=== PATIENT | male | born 1990 | race Hispanic/Latino ===

== ENCOUNTER 2024-02-15 09:50 | Emergency (ER) | payer SELFPAY ==
[2024-02-15 09:52] VITALS: BP 138/89; PULSE 66; RESP 18; TEMP 37.2; O2SAT 100; BMI 25.7
--- NOTE | 2024-02-15 10:09 | EDS_ITS ---
HPI History of Present Illness Chief Complaint: Male Pain/Injury PFSH PFS Home Medications ?Medication ?Instructions ?Recorded ?Last Taken ?Type doxycycline hyclate 100 mg tablet 100 mg PO BID 7 days #14 tabs 02/15/24 Unknown Rx Allergy/AdvReac Type Severity Reaction Status Date / Time No Known Allergies Allergy Verified 02/15/24 09:52 EXAM Physical Exam Const Vital Signs: 02/15/24 09:52 Temperature 98.9 F Temperature Source Oral Pulse Rate 66 Respiratory Rate 18 Blood Pressure 138/89 H Blood Pressure Mean 105 Pulse Ox 100 Oxygen Delivery Method Room Air MDM MDM MDM Narrative Medical decision making narrative: HISTORY OF PRESENT ILLNESS: 33-year-old male Scottish-speaking primarily presents with concern for STD. States he had sex with a female for like needs to be tested. Notes he had unprotected sex with new partner. Notes this occurred a couple days ago. States since then he had burning with urination. No history of STDs. No a bdominal pain. No vomiting. REVIEW OF SYSTEMS: Pertinent positives: Painful urination Pertinent negatives: Abdominal pain, vomiting PHYSICAL EXAM: Nursing triage notes reviewed, Vital signs reviewed Constitutional: please see mdm Lungs: Clear to auscultation, No wheezing or rales. No increased work of breathing, no conversational dyspnea, no accessory muscle use, no nasal flaring. No respiratory distress noted Heart: Regular rate and rhythm, No murmurs, No rubs and No gallops, 2+ distal pulses (radial, femoral, posterior tibial) in all extremities Abdomen: Soft, there is no tenderness, rigidity, rebound or guarding, no obvious peritoneal signs, no palpable pulsatile abdominal masses, no auscultated abdominal bruit : No CVAT, performed associate professor physician in room showed normal-appearing testicles, normal-appearing genitalia, no chancre, no herpetic lesions, no testicular tenderness. Normal testicular lie. Extremities: No edema Skin: No rash or lesions noted MEDICAL DECISION MAKING: Chief Complaint: STD exposure External records reviewed: None Factors affecting care: none Social determinants of health: Scottish-speaking, cylinder tester used History obtained from others: none Consults: none [facility] Narrative: The patient was initially hemodynamically stable, afebrile, nontoxic-appearing. exam unremarkable. STD testing obtained. Empiric therapy given. I considered the following differential diagnosis: GC, chlamydia, HIV, syphilis I obtained urine GC chlamydia and serum syphilis and HIV testing. Give empiric therapy with ceftriaxone and doxycycline. Start the patient 1 week of doxycycline per CDC guidelines. Gave strict return precautions. Encouraged to avoid sexual contact until results of testing are known and antibiotics are completed. Encouraged safe sex practices including condom wearing. The patient and/or family, caregivers express understanding. The patient and/or family, caregivers agrees with the plan. Shared decision making: I will have a discussion with the patient and or visitors regarding risk/benefits of further testing or admission. They will be made aware of of the risk/benefits inherent in this decision they will be given the opportunity to voice understanding. Total critical care time today provided was at least 0 minutes. This excludes separately billable procedures. Critical care time (if documented) is secondary to the patient having high probability of clinically significant/life threatening deterioration in the patient's condition which required my urgent intervention. Impression: 1. Encounter for STD testing 2. Dysuria Dispo: Discharge home This note was generated with [employer] dictation software. It may contain incorrect words, spelling, and punctuation that were not noted in review of the chart prior to signing. Discharge Plan Triage Chief Complaint: Male Pain/Injury ED Provider: José Miguel Wagner Dx/Rx/DC Orders Instructions: STI Prescriptions: New doxycycline hyclate 100 mg tablet 100 mg PO BID 7 Days Qty: 14 0RF Primary Care Provider: Care Physician,No Primary Activity Restrictions/Additional Instructions: Thank you for trusting us with your care today! Please expect a call if your testing results positive. Please take Tylenol (2 pills, 650 mg), ibuprofen (2 pills, 400 mg) every 6 hours as needed for pain and fever control. Please take antibiotics as prescribed until course completed. Please refrain from activities until results of testing are known Please return to the emergency department if your symptoms change or worsen. Please follow with your primary care physician for further outpatient evaluation and management. Print Language: Scottish Disposition Disposition: Home, Self Care
[2024-02-15] MEDS: Doxycycline 100 MG CAPSULE PO (10:59)
[2024-02-15] MEDS: Ceftriaxone 500 MG Vial IM (10:59)
--- NOTE | 2024-02-15 12:38 | ED.RN ---
THIS RN CALLED PT AND SPOKE TO HIS FRIEND THAT TRANSLATES FOR HIM TO LET HIM KNOW THAT HIS CHLAMYDIA TEST CAME BACK POSITIVE BUT HE DID RECEIVE APPROPRIATE TREATMENT
[2024-02-15 13:24] LABS: HIV - WCH Non-Reactive (Nonreactive); Syphilis Antibodies Non-reactive
== END 2024-02-15 10:58 | disposition home or self-care (01) ==
PROVIDERS: Emergency Provider Emergency Medicine; Visit Provider Emergency Medicine
DX: R30.0 Dysuria (principal); Z20.2 Contact with and (suspected) exposure to infections with a predominantly sexual mode of transmission
CPT/HCPCS: 86703; 86780; 87491; 87591; 96372; 99282